=== PATIENT | male | born 1950 | race Caucasian/White ===

== ENCOUNTER 2016-11-03 08:01 | Inpatient (IN) | payer MEDICARE, OTHER ==
--- NOTE | ~2016-11-03 | CN ---
Consultation Report [facility] [address] [place]. [address] NAME: ALMITA PIMENTEL : 52 STATUS : ADM IN PAT#: [id number] AGE: 66 ADM/REG DATE : 11/03/16 MR#: [id number] REPORT SERV DATE: 11/04/16 DICTATED BY: KAMERON HERRERA DATE: 11/04/16 REPORT STATUS : Draft TRANSCRIBED BY: MODNicole DATE: 11/04/16 CONSULTATION REPORT DATE OF CONSULTATION: Dear Lucho Cummings: Thank you for requesting my opinion regarding evaluation and management of Mr. Almita Pimentel's shortness of breath, clinical COPD, and 50+ pack year smoking history. Mr. Pimentel is an extremely pleasant 66-year-old gentleman with a significant past medical history of hypertension, hyperlipidemia, COPD, nicotine dependence, left femoral artery stenosis with previous stenting by Dr. Jiang, obesity, peripheral neuropathy, and depression, who presented to [facility] with a history of shortness of breath. He underwent CT screening of the chest which revealed extensive coronary artery calcification and COPD, with hyperinflation of the lungs, and peripheral interstitial thickening and scarring. There were no lung masses, infiltrates, or adenopathy per the radiologist's report, and then he was referred to cardiology evaluation. He underwent nuclear stress test, that demonstrated ischemic changes on EKG during exertion. Carotid ultrasound by Dr. Jiang in August did not demonstrate any significant flow-limiting disease, consistent with category 1 bilaterally by NASCET criteria. On 11/03/2016, he underwent a coronary arteriogram that demonstrated significant three-vessel disease including 70% left main, tandem left anterior descending 70% and 75% stenosis, 50% circumflex, and distal total chronic occlusion on the right coronary artery, with [id number] collateralization. Left ventricular ejection fraction was normal with an ejection fraction on echo of 65%, and a ventriculogram of 55%. The patient was recommended to undergo coronary artery bypass graft surgery. Lucho Cummings asked us to help optimize his pulmonary status, given his profound smoking history. Currently, the patient states that he has chronic shortness of breath at baseline specifically with exertion. He can easily walk up a flight of stairs or walk on flat ground. However, he does have exertional dyspnea. He characterizes as moderate in nature, well localized to the chest, nonradiating with no significant alleviating or exacerbating factors. He has never been told he has COPD despite his heavy tobacco abuse; nor Mr. Pimentel has been ever been prescribed any bronchodilator therapy. REVIEW OF SYSTEMS: A detailed 14-point review of systems was completed. Pertinent positives and negatives are listed above. PAST MEDICAL HISTORY: 1. Hypertension. 2. Hyperlipidemia. 3. COPD. 4. Nicotine dependence. 5. Superficial left femoral artery stenosis with previous stenting by Dr. Jiang in 2013. 6. Obesity. Consultation Report [address] [place]. [address] NAME: ALMITA PIMENTEL : 52 STATUS : ADM IN PAT#: [id number] AGE: 66 ADM/REG DATE : 11/03/16 MR#: [id number] REPORT SERV DATE: 11/04/16 DICTATED BY: KAMERON HERRERA DATE: 11/04/16 REPORT STATUS : Draft TRANSCRIBED BY: PATRICIA DATE: 11/04/16 7. Peripheral neuropathy. 8. Depression. PAST SURGICAL HISTORY: None. FAMILY HISTORY: Hypertension, cancer, and one brother from an accident at age 24. ALLERGIES: NO KNOWN DRUG ALLERGIES. HOME MEDICATIONS: Reviewed and located in the paper chart. SOCIAL HISTORY: The patient is . 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 He lives close to [place]. He smokes a pack to a pack and half per day for more than 50+ pack years. He denies any significant alcohol or illicit drug abuse. PHYSICAL EXAMINATION: VITAL SIGNS: Afebrile, T-current of 98, pulse of 53, respiratory rate of 16, room air 94%, and blood pressure 158/69. GENERAL: In no acute distress. Able to communicate in full paragraphs at a time. HEENT: Normocephalic and atraumatic. Pupils are equal, round, and reactive to light and accommodation. Posterior oropharynx is clear. NECK: No JVD. No LAD. Trachea midline. CARDIOVASCULAR: Regular rate and rhythm. S1 and S2 present. No obvious murmurs, rubs, or clicks. LUNGS: Clear to auscultation bilaterally. ABDOMEN: Nontender, nondistended, and soft. Positive bowel sounds. EXTREMITIES: No clubbing, cyanosis, or edema. SKIN: No new rashes, lesions, or ulcers. PSYCHIATRIC: Alert and oriented x3. Appropriate mood and affect. Appropriate insight and judgment. NEUROLOGIC: 5/5 strength in upper and lower extremities. Cranial nerves II through XII intact. Gait not tested. DTRs not performed. DIAGNOSTIC STUDIES: CT scan of the chest on 09/18/2016, was personally reviewed by me and I agree with the following interpretation, COPD with hyperinflation and peripheral interstitial thickening with scarring. ASSESSMENT/PLAN: Mr. Almita Pimentel is an extremely pleasant 66-year-old gentleman, with significant past medical history of hypertension, hyperlipidemia, chronic obstructive pulmonary disease, with greater than 50+ pack year smoking history, who presents to [facility] with shortness of breath. His cardiac workup demonstrated significant three-vessel disease requiring CABG. The Pulmonary Service has been asked to optimize his respiratory issues in anticipation of surgery. The patient appears to have no active disease. His CT scan of the chest performed on Consultation Report [address] [address] NAME: ALMITA PIMENTEL : 52 STATUS : ADM IN [facility]#: [id number] AGE: 66 ADM/REG DATE : 11/03/16 MR#: [id number] REPORT SERV DATE: 11/04/16 DICTATED BY: KAMERON HERRERA DATE: 11/04/16 REPORT STATUS : Draft TRANSCRIBED BY: PATRICIA DATE: 11/04/16 09/18/2016, confirmed the presence of chronic obstructive pulmonary disease like changes, including hyperinflation, emphysema, and paraseptal changes, with peripheral associated scarring. I do not see any clear evidence of an interstitial lung disease, though there may be an early indication of these types of changes. At this point, I recommend the following to optimize his pulmonary status. 1. Smoking cessation counseling provided for greater than 10 minutes. 2. Spiriva one puff daily. 3. Albuterol MDI two to four puffs q.4h p.r.n. 4. Bedside incentive spirometry q.1 hour. 5. Nicotine patch daily. 6. The patient may benefit from outpatient Pulmonary followup. I will defer until discharge. Thank you for allowing me to participate in Mr. Pimentel's care. SABINO/PATRICIA Kameron Herrera M.D. / [id number] CC: Nakita Carroll Jr., M.D.
--- NOTE | ~2016-11-03 | DS ---
Discharge Summary [facility] [address] [place]. [address] NAME: ALMITA PIMENTEL : 52 STATUS : DIS IN PAT#: [id number] AGE: 66 ADM/REG DATE : 11/03/16 MR#: [id number] REPORT SERV DATE: 11/21/16 DICTATED BY: ANTONETTE AMARAL JR. DATE: 11/21/16 REPORT STATUS : Draft TRANSCRIBED BY: PATRICIA DATE: 11/21/16 Data Collection from hospitalization DISCHARGE DIAGNOSES: 1. Coronary artery disease, status post coronary artery bypass grafting. 2. Paroxysmal atrial fibrillation. 3. Nicotine dependence. 4. Hypertension. 5. Mixed hyperlipidemia. 6. Chronic obstructive pulmonary disease. 7. Obesity. 8. Peripheral neuropathy. 9. Depression. CONSULTATIONS: 1. Alireza Cummings N.P. 2. Kameron Marion M.D. 3. Sanju Angelo APN. PROCEDURES: 1. Cardiac catheterization, 11/03/2016. 2. Median sternotomy, extracorporeal circulation. 3. Urgent coronary artery bypass grafting x4 with PHILLIPS to the LAD, reverse greater saphenous vein graft to the diagonal artery, reverse greater saphenous vein graft to the ramus intermedius, reverse greater saphenous vein graft to the right posterolateral branch, transesophageal echocardiogram, endoscopic vein harvest from the right leg, external sternal fixation with sternal plating with SternaLock [employer] system, Provena placement, 11/06/2016. 4. Vein mapping of the bilateral lower extremities, 11/04/2016. 5. Pulmonary function studies, 11/06/2016. 6. Overnight oximetry study, 11/10/2016. DISCHARGE MEDICATIONS: Cordarone 200 mg twice a day, Norvasc 5 mg daily, aspirin 81 mg daily, Lipitor 40 mg daily, Lexapro 20 mg at bedtime, Neurontin 300 mg twice a day, Early Branch 5/325 one to two tablets every four hours as needed, Imdur 60 mg daily, Lopressor 12.5 mg twice a day, Mirapex 0.25 mg at bedtime, Jantoven 5 mg at bedtime, Ambien CR 12.5 mg at bedtime. CONDITION ON DISCHARGE: Stable. DISPOSITION: The patient was discharged home on an 1800-calorie diabetic/cardiac diet with activities as instructed. He would follow up with Dr. Josesito Sung four weeks following discharge and will follow up with me four weeks following discharge. He would follow up with Dr. Flora Houston on 11/14/2016. HOSPITAL COURSE: This is a 66-year-old man who had been evaluated regarding shortness of breath and coronary artery disease. He has regular exertional shortness of breath and it had been persistent over the past couple of years. He has been a lifelong heavy smoker Discharge Summary [address] [address] NAME: ALMITA PIMENTEL : 52 STATUS : DIS IN PAT#: [id number] AGE: 66 ADM/REG DATE : 11/03/16 MR#: [id number] REPORT SERV DATE: 11/21/16 DICTATED BY: ANTONETTE AMARAL JR. DATE: 11/21/16 REPORT STATUS : Draft TRANSCRIBED BY: PATRICIA DATE: 11/21/16 about a pack and half per day. He denies any precordial chest pain. Screening chest CT revealed extensive coronary calcification diagnosing coronary artery disease. He denied any palpitations, dizziness or presyncope. He denied orthopnea or PND. He does have bilateral neuropathic pain. He denied any claudication. His carotids had recently been evaluated by Dr. Jiang. It was felt that he would need to undergo cardiac catheterization. He was admitted to the hospital at this time for further evaluation and treatment. Upon admission, he was taken to the [facility] where he underwent the above-mentioned procedure. He tolerated this well. There were no complications. Following this, he was seen by Alireza Cummings regarding three-vessel coronary artery disease with left main stenosis and consideration for urgent coronary artery bypass grafting. The patient's coronary arteriogram demonstrated significant three-vessel coronary artery disease including a 70% left main stenosis, tandem left anterior descending 70% and coronary artery disease including 70% left main stenosis, tandem left anterior descending 70% and 75% stenosis, 50% circumflex, and distal chronic total occlusion of the right coronary artery with left-to- right collaterals. Left ventricular ejection fraction was normal with the ejection fraction on echo at 65% and at ventriculogram 55%. It was felt that the patient would need to undergo coronary artery bypass grafting. The following day, vein mapping of the bilateral lower extremities was performed. The patient was seen by Dr. Kameron Marion regarding his opinion and management of shortness of breath and clinical COPD as well as a 50+ pack year smoking history. He had a CT scan of the chest which had revealed extensive coronary artery calcification and COPD with hyperinflation of the lungs and peripheral interstitial thickening and swollen. There have been no lung masses, infiltrates or adenopathy. He had undergone a carotid ultrasound in August which did not demonstrate any significant flow- limiting disease. This was consistent with category 1 bilaterally. They had been asked to help optimize the patient's pulmonary status given his profound smoking history. Currently, the patient states that he has chronic shortness of breath at baseline specifically with exertion. He can easily walk up a flight of stairs or walk on flat ground. However, he does have exertional dyspnea. He characterizes it as moderate in nature and well localized to the chest and it is nonradiating with no significant alleviating or exacerbating factors. He said he had never been told that he had COPD despite his heavy tobacco use nor has the patient ever been prescribed any bronchodilator therapy. The Pulmonary Service was asked the optimize his respiratory issues in anticipation of surgery. He appeared to have no active disease at this time. We encouraged him to stop smoking. Spiriva was going to be started daily. Albuterol MDI was going to be given as needed. A bedside incentive spirometry was to be used every hour and nicotine patch would be placed daily. He felt that the patient may benefit from outpatient pulmonary followup. On the 12th, he said he felt fine. He had no chest pain, shortness of breath or palpitations. His lungs were clear to auscultation. Imdur was increased. Amlodipine was also increased. His blood pressure was under suboptimal control. Hydralazine would be given as needed. Plans were being made to proceed with surgical intervention. On 11/06/2016, potassium supplementation had being given. The patient was taken to the operating room by Dr. Josesito Sung where he underwent the above-mentioned procedure. He tolerated this well. There were no complications. He had also undergone pulmonary function studies earlier in the day. Blood pressure was under fair control. On postop day #1, he was feeling okay. He said he had some minor pleuritic chest pain. He Discharge Summary [address] [address] NAME: ALMITA PIMENTEL : 52 STATUS : DIS IN PAT#: [id number] AGE: 66 ADM/REG DATE : 11/03/16 MR#: [id number] REPORT SERV DATE: 11/21/16 DICTATED BY: ANTONETTE AMARAL JR. DATE: 11/21/16 REPORT STATUS : Draft TRANSCRIBED BY: PATRICIA DATE: 11/21/16 had mild dyspnea. Chest x-ray showed increased vascular congestion and pulmonary edema. White count was 17.1. INR level was 1.3. IV Lasix was started for diuresis. Statin therapy was being provided. Diabetes was well controlled on insulin drip. Hemoglobin A1c was 5.6. He was seen by Sanju Angelo regarding postop hyperglycemia. The patient was up sitting in a chair and was eating. He was currently on an IV insulin drip. He has no previous history of diabetes. Hemoglobin A1c was 5.6%. His blood sugars were currently controlled on IV insulin drip although he was requiring a high rate. He was eating well. He was going to be given a dose of Levemir postop and change to postop cardiac IV insulin transitional orders level 2. We would try to wean him off the insulin drip. The next day, he said he was feeling good. He was up sitting in a chair. He had no shortness of breath or chest pain. He remained in a sinus rhythm. He was eating well. Level 1 sliding scale insulin continued. On 11/09/2016, he had no issues overnight. He was mobilizing without complaints. His pain was well controlled. He had some scattered rhonchi and rales in his lungs. Over the next couple of days, discharge planning was performed. The Abel drain was discontinued. He was being diuresed. He had developed atrial fibrillation but converted to a sinus rhythm. He had no chest pain or shortness of breath. On 11/11/2016, his sternum was clean, dry, and intact. Chest x-ray showed no pneumothorax or effusion. Discharge instructions were given. Due to his improved and stable condition, he was discharged home with the above-stated instructions. Information collected by: Umm Carcamo I submit the above information as my discharge summary. SENTHIL/PATRICIA Antonette Amaral Jr., M.D. / [id number] CC: Nakita Carroll Jr., M.D. Michael S. Loga, N.P.
--- NOTE | ~2016-11-03 | CN ---
Consultation Report [place] [address] [facility] [place]. [address] NAME: ALMITA PIMENTEL : 52 STATUS : ADM IN PAT#: [id number] AGE: 66 ADM/REG DATE : 11/03/16 MR#: [id number] REPORT SERV DATE: 11/07/16 DICTATED BY: SANJU YUEN DATE: 11/07/16 REPORT STATUS : Draft TRANSCRIBED BY: MODL DATE: 11/07/16 NEW CONSULT DATE OF CONSULTATION: REASON FOR CONSULT: Postop hyperglycemia. HISTORY OF PRESENT ILLNESS: This 66-year-old male, status post CABG x3 postop day #1, performed by Dr. Sung. The patient tolerated the procedure well. Currently, he is in room, sitting up in chair, and eating. We have been consulted for postop hyperglycemia. The patient is currently on IV insulin drip, currently running at 12 units an hour. The patient has no history of diabetes as the hemoglobin A1c has been checked here at 5.6%. Currently, blood sugars are controlled on IV insulin drip, though he is requiring high rate. He is postop day 1, he is eating well. PAST MEDICAL HISTORY: 1. Hypertension. 2. Hyperlipidemia. 3. COPD. 4. Nicotine dependence. 5. Superficial left femoral artery stenosis. 6. Obesity. 7. Peripheral neuropathy. 8. Depression. PAST SURGICAL HISTORY: None. SOCIAL HISTORY: , retired insurance customer service specialist. He smokes 1-1/2 packs per day. FAMILY HISTORY: Hypertension and cancer. HOME MEDICATIONS: 1. Aspirin. 2. Lipitor. 3. Bisoprolol and HCTZ. 4. Lexapro. 5. Neurontin. 6. Imdur. 7. Mirapex. 8. Ambien. 9. Amlodipine. ALLERGIES: NO KNOWN ALLERGIES. Consultation Report [place] [address] [place]. [address] NAME: ALMITA PIMENTEL : 52 STATUS : ADM IN PAT#: [id number] AGE: 66 ADM/REG DATE : 11/03/16 MR#: [id number] REPORT SERV DATE: 11/07/16 DICTATED BY: SANJU YUEN DATE: 11/07/16 REPORT STATUS : Draft TRANSCRIBED BY: MODL DATE: 11/07/16 REVIEW OF SYSTEMS: 14-point review of systems performed with the patient and negative as previously mentioned. PHYSICAL EXAMINATION: VITAL SIGNS: Blood pressure 125/68, heart rate 86, respirations 16, O2 saturation 94% on 4 L nasal cannula, temperature 100.1. GENERAL: Cooperative, no apparent distress, awake. NEURO: Alert and oriented x3. Pupils PERRLA. No focal deficits. CHEST: Midline sternotomy with the chest tubes drain. LUNGS: Clear to auscultation bilaterally. Normal respiratory effort. CARDIOVASCULAR: No murmurs auscultated. Regular rhythm. ABDOMEN: Soft, nontender. Hypoactive sluggish bowel sounds. EXTREMITIES: No edema. Normal distal pulses. LABORATORY DATA: Sodium 142, potassium 5.0, chloride 109, BUN 19, creatinine 0.90, calcium 8.9, magnesium 2.1. White blood cells 17.1, hemoglobin 13.1, hematocrit 39.0, platelets 119. INR 1.3. ASSESSMENT AND PLAN: 1. Coronary artery disease, status post coronary artery bypass graft x3, postop day #1, on amlodipine, aspirin, amiodarone, HCTZ, Imdur, beta manny, and nitro paste q.6 hours. Further plans per Cardiology and Cardiovascular Thoracic Surgery. 2. Hypertension. Blood pressure is controlled. 3. Chronic obstructive pulmonary disease, stable. 4. Obesity with body mass index of 30.7. 5. Postop hyperglycemia, nondiabetic with A1c of 5.6, on IV insulin drip averaging about 8 units an hour over the last 12 hours. We will give Levemir 30 units x1 postop and change the patient to postop cardiac IV insulin transitional orders level 2 and try to wean him off the insulin drip. Thank you very much for this consult. TDR/MODL Sanju Yuen APN / [id number] CC: Nakita Carroll Jr., M.D. Wilson M. Clements, MD
--- NOTE | ~2016-11-03 | PUL ---
[facility] [address] [place]. [address] NAME: ALMITA PIMENTEL : 52 STATUS : DIS IN PAT#: [id number] AGE: 66 ADM/REG DATE : 11/03/16 MR#: [id number] REPORT SERV DATE: 11/11/16 DICTATED BY: MACHELLE STERN IV DATE: 11/11/16 REPORT STATUS : Draft TRANSCRIBED BY: MODNicole DATE: 11/11/16 PULMONARY FUNCTION TEST OVERNIGHT OXIMETRY DATE OF STUDY: 11/10/2016. The study was performed on room air. DURATION: Six hours and 18 minutes of data are available for review. RESULTS: The mean oxygen saturation was 89.3%. The lowest recorded saturation was 81%. The patient spent one hour and 38 minutes with oxygen saturations less than 88%. There were periods of oxygen saturation variation of sawtooth pattern, though rarely did this meet 4% variance. IMPRESSION: Severe nocturnal hypoxemia on room air. I would suggest placing the patient on 2 L of supplemental oxygen. There is no clear pattern consistent with obstructive sleep apnea based on this study. CAREN/PATRICIA Machelle Stern IV, M.D. / [id number] CC: Nakita Carroll Jr., M.D.
--- NOTE | ~2016-11-03 | CN ---
Consultation Report [facility] [address] [place]. [address] NAME: ALMITA PIMENTEL : 52 STATUS : ADM IN PAT#: [id number] AGE: 66 ADM/REG DATE : 11/03/16 MR#: [id number] REPORT SERV DATE: 11/03/16 DICTATED BY: ALIREZA ESPINOZA DATE: 11/03/16 REPORT STATUS : Draft TRANSCRIBED BY: MODL DATE: 11/03/16 CONSULTATION. DATE OF CONSULTATION: 11/03/2016 REASON FOR CONSULTATION: Three-vessel coronary artery disease with left main stenosis, consideration for urgent coronary artery bypass grafting. CHIEF COMPLAINT: Shortness of breath. HISTORY OF PRESENT ILLNESS: This 66-year-old gentleman, smoker, with no history of heart disease, went to his primary care physician with complaints of shortness of breath. He reports smoking greater than 50-pack years. He has smoked over [id number]-half per day since his teenage years. He underwent screening CT of the chest, and this revealed extensive coronary artery calcification and COPD with hyperaeration of the lungs and peripheral interstitial thickening and scarring. There were no lung masses, infiltrates, or adenopathy per radiologist's interpretation. He was referred for cardiology evaluation, and he underwent nuclear stress test that showed ischemic changes on EKG during exertion. He had carotid ultrasound by Dr. Jiang in August that did not demonstrate any significant flow-limiting disease that is category 1 disease bilaterally by NASCET criteria. Today, the patient underwent coronary arteriogram that demonstrated significant three-vessel coronary artery disease including a 70% left main stenosis, tandem left anterior descending 70% and 75% stenosis, 50% circumflex, and distal chronic total occlusion of the right coronary artery with left to right collateralization. Left ventricular ejection fraction was normal with the ejection fraction on echo at 65%, ventriculogram of 55%. We were asked to see for possible urgent coronary artery bypass grafting, and this was discussed with the patient and his family at bedside today. PRIOR MEDICAL HISTORY: 1. Hypertension. 2. Hyperlipidemia. 3. COPD. 4. Nicotine dependence. 5. Superficial left femoral artery stenosis with previous stenting by Dr. Jiang, 2013. 6. Obesity. 7. Peripheral neuropathy. 8. Depression. PRIOR SURGICAL HISTORY: None. FAMILY HISTORY: Brother with hypertension, father and mother with cancer. One brother from an accident at age 24. Consultation Report [facility] [address] [place]. [address] NAME: ALMITA PIMENTEL : 52 STATUS : ADM IN PAT#: [id number] AGE: 66 ADM/REG DATE : 11/03/16 MR#: [id number] REPORT SERV DATE: 11/03/16 DICTATED BY: ALIREZA ESPINOZA DATE: 11/03/16 REPORT STATUS : Draft TRANSCRIBED BY: PATRICIA DATE: 11/03/16 ALLERGIES: NONE KNOWN. MEDICATIONS: Include aspirin 81 mg daily, atorvastatin 40 mg daily, Ziac 10/6.25 decreased to 5/6.25 p.o. daily, Lexapro 20 mg p.o. daily, gabapentin 300 mg p.o. b.i.d., isosorbide 30 mg p.o. daily, Mirapex 0.25 mg p.o. at bedtime, Ambien 12.5 mg p.o. at bedtime. He also started on amlodipine 5 mg p.o. daily. 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 His tobacco use consists of cigarette smoking, a pack and half per day for likely more than 50-pack years. He denies use of alcohol or illicit drugs. REVIEW OF SYSTEMS: GENERAL: Negative for any recent weight change, fevers, chills, or night sweats. ENT: Positive for wearing glasses. Negative for cataracts or glaucoma. Negative for hearing loss. Positive for dental implants and fillings. RESPIRATORY: Significant for snoring. Negative for hemoptysis. Positive for wheezing. CV: Negative for chest pain, tightness, heaviness, pressure, discomfort in the neck, back, shoulders, arms, or jaw. Negative for heartburn. GI: Positive for taking daily Prilosec. Negative for bleeding in stool or vomiting blood. Negative for ulcers. : Negative. ENDOCRINE: Negative. NEUROLOGIC: Negative for symptoms of TIA or amaurosis fugax. Negative for seizures, tremors, or memory loss. PSYCH: Negative for hallucinations. Positive for depression. MUSCULOSKELETAL: Negative for any bone, joint, back, or neck problems. HEME/ONC: Negative for skin cancers. Negative for anemia. Negative for easy bruising, free bleeding, or blood clots. Otherwise, negative or as above. PHYSICAL EXAMINATION: GENERAL: This is a pleasant, obese white male, in no acute distress. His weight is 99.81 kg, height is 180.34 cm. VITAL SIGNS: Blood pressure 145/70, temperature 98.1, pulse 49 and regular, respirations 17 and regular and unlabored. HEENT: Normocephalic, atraumatic. Pupils equal, round, reactive to light and accommodation. Sclerae are injected,. He has no icterus. Conjunctivae are pink. No xanthelasma. Oral and buccal mucosa pink and moist. Teeth in good condition with multiple fillings noted. Mallampati class 2 airway. NECK: Supple. No restricted range of motion. No carotid bruits. No jugular venous distention. CHEST: He has scattered polyphonic expiratory wheezes and inspiratory rhonchi. No use of accessory muscles. No chest wall tenderness. No deformity. CV: Regular rate and rhythm without murmur or rub. He has palpable and symmetric central and peripheral pulses, mild clubbing of the fingers. No cyanosis. No lower extremity varicosities, rubor, or signs of arterial insufficiency. Consultation Report [address] [place]. [address] NAME: ALMITA PIMENTEL : 52 STATUS : ADM IN [facility]#: [id number] AGE: 66 ADM/REG DATE : 11/03/16 MR#: [id number] REPORT SERV DATE: 11/03/16 DICTATED BY: ALIREZA ESPINOZA DATE: 11/03/16 REPORT STATUS : Draft TRANSCRIBED BY: MODL DATE: 11/03/16 ABDOMEN: Soft, obese, nontender with normoactive bowel sounds. No hepatosplenomegaly. /RECTAL: Declined. MUSCULOSKELETAL: No kyphoscoliosis, no asymmetry. NEUROLOGIC: Alert oriented to day, date, place, and situation. Speech is clear and fluent. No focal deficits. No tremors. SKIN, HAIR, AND NAILS: Good hygiene, no sores masses or rashes. DATA: His coronary arteriogram which I reviewed today showing the lesions as described. Echocardiogram reviewed with no evidence of valvulopathy. Current EKG shows sinus bradycardia. Carotid ultrasound from Dr. Jiang's office shows irregular heterogeneous plaque in the ICA with no elevated velocities and antegrade vertebral flow. There is plaquing in velocities consistent with 1% to 49% stenosis or category 1 disease in bilateral internal carotid arteries. CURRENT LABORATORY DATA: Sodium is 141, potassium 4.7, chloride 104, CO2 of 29, BUN 14, creatinine 0.96. Lipids are within normal limits. His CBC shows hemoglobin of 15.4 g, hematocrit is 45%, platelets 209,000. IMPRESSION: 1. Three-vessel flow-limiting coronary artery disease with left main involvement. 2. Chronic obstructive pulmonary disease, emphysema. 3. Tobacco abuse. 4. Atherosclerotic coronary artery disease. 5. Hypertension. 6. Dyslipidemia. 7. Obesity. 8. Depression. PLAN: Discussed with the patient and his at bedside today. We talked about possible coronary artery bypass grafting, indications, benefits, and serious risks which include but are not limited to, things such as bleeding, need for blood or blood product transfusion and their attendant risks, infection including deep sternal infection, mediastinitis, damage to the kidneys, liver, or lungs, heart attack, stroke, abnormal heart rhythm, and even . The patient indicates his understanding and is willing to proceed. Using Society of Thoracic Surgeons database, risk calculations predicted mortality of 0.8% and any morbidity or mortality 10.067%, and this was shared with the patient and his today. We appreciate very much the opportunity to participate in his care and have tentatively looking toward Sunday for urgent coronary artery bypass grafting by Dr. Sung. VESTA/PATRICIA Alireza Magana Consultation Report [address] [address] NAME: ALMITA PIMENTEL : 52 STATUS : ADM IN PAT#: [id number] AGE: 66 ADM/REG DATE : 11/03/16 MR#: [id number] REPORT SERV DATE: 11/03/16 DICTATED BY: ALIREZA ESPINOZA DATE: 11/03/16 REPORT STATUS : Draft TRANSCRIBED BY: PATRICIA DATE: 11/03/16 Alicia Espinoza / [id number] CC: Nakita Carroll Jr., M.D.
--- NOTE | ~2016-11-03 | PUL ---
[id number] [place]. [address] NAME: ALMITA PIMENTEL : 52 STATUS : ADM IN [facility]#: [id number] AGE: 66 ADM/REG DATE : 11/03/16 MR#: [id number] REPORT SERV DATE: 11/07/16 DICTATED BY: MACHELLE STERN IV DATE: 11/06/16 REPORT STATUS : Draft TRANSCRIBED BY: MODL DATE: 11/06/16 PULMONARY FUNCTION TEST SPIROMETRY CLINICAL EDUCATION COORDINATOR COMMENTS: The patient's efforts were good. The study was performed with the patient sitting in the chair. FINDINGS: Baseline spirometry demonstrates a low normal FVC with a low FEV1 and FEV1/FVC ratio. IMPRESSION: Moderate obstructive ventilatory defect. FEV1 is 2.31 L or 65% of predicted. NM/PATRICIA Machelle Stern IV, M.D. / [id number] CC: Damon Amaral Jr., M.D.
--- NOTE | ~2016-11-03 | OP ---
Record Of Operation [facility] [address] [facility] [address] [place]. [address] NAME: ALMITA PIMENTEL : 52 STATUS : ADM IN PAT#: [id number] AGE: 66 ADM/REG DATE : 11/03/16 MR#: [id number] REPORT SERV DATE: 11/06/16 DICTATED BY: JOSESITO HENDERSON DATE: 11/06/16 REPORT STATUS : Draft TRANSCRIBED BY: MODL DATE: 11/06/16 DATE OF PROCEDURE: 11/06/2016 THREADER: Nando Figueroa. ANESTHESIOLOGIST: Dr. James Perdomo. PREOPERATIVE DIAGNOSES: 1. Three-vessel coronary artery disease. 2. Unstable angina. 3. Hypertension. 4. Hyperlipidemia. 5. SFA stent. 6. Peripheral vascular disease. 7. Chronic obstructive pulmonary disease. 8. Dyspnea on exertion. 9. Tobacco abuse. POSTOPERATIVE DIAGNOSES: 1. Three-vessel coronary artery disease. 2. Unstable angina. 3. Hypertension. 4. Hyperlipidemia. 5. SFA stent. 6. Peripheral vascular disease. 7. Chronic obstructive pulmonary disease. 8. Dyspnea on exertion. 9. Tobacco abuse. OPERATION/PROCEDURE PERFORMED: 1. Median sternotomy. 2. Extracorporeal circulation. 3. Urgent coronary artery bypass grafting x4, left internal mammary artery to left anterior descending, reversed greater saphenous vein graft to D3, reversed greater saphenous vein graft to ramus intermedius, reversed greater saphenous vein graft to right posterolateral branch. 4. DENISA. 5. Endoscopic vein harvest of right leg. 6. External sternal fixation with sternal plating with SternaLock [employer] system. 7. Prevena placement. COMPLICATIONS: None. TUBES AND DRAINS: 24-Monegasque Abel to the left pleural space. A 32-straight mediastinal tube. Atrial and ventricular wires. Record Of Operation [facility] [address] [facility] [place]. [address] NAME: ALMITA PIMENTEL : 52 STATUS : ADM IN PAT#: [id number] AGE: 66 ADM/REG DATE : 11/03/16 MR#: [id number] REPORT SERV DATE: 11/06/16 DICTATED BY: JOSESITO HENDERSON DATE: 11/06/16 REPORT STATUS : Draft TRANSCRIBED BY: MODL DATE: 11/06/16 POSTOPERATIVE CONDITION: Stable to CVICU. INTRAOPERATIVE FINDINGS: Excellent vein. LAD was extremely diffusely diseased and small distally. VERONICA was approximately 3 mm in size. He had a very large heart with a thick LV on transesophageal echo. There was left ventricular hypertrophy. There was normal EF. No MR. No AI. No . DETAILS OF STERNAL PLATING: One 180 plate was used. Two X plates were used. Twenty 16-mm screws were used. The 180 plate was placed on the manubrium between the second and third sternal wires, and X plates were placed between sternal wires on the body of the sternum. DETAILS OF CARDIOPULMONARY BYPASS GRAFTIN. Graft #1, PHILLIPS to left anterior descending. This was 1.25 mm distally. There was excellent Doppler signals, both pre and post protamine. This was a small diffusely diseased artery. 2. Reversed greater saphenous vein graft to D3, this was 1.75 mm artery. 3. Reversed greater saphenous vein graft to ramus intermedius. This was a 2-mm artery. 4. Reversed greater saphenous vein graft to the right posterolateral branch, this was 1.5 mm diffusely diseased artery. INDICATIONS FOR PROCEDURE: Mr. Pimentel is a 66-year-old gentleman with a strong history of smoking with symptoms consistent with unstable angina, who was admitted after outpatient catheterization for urgent coronary artery bypass grafting. The patient was seen. Risks, benefits, and alternatives were discussed with him, including but not limited to, bleeding, infection, stroke, , heart attack, need for future operations. All questions were answered. STS risk score was calculated and discussed with the patient. Risk of less than 5% and total morbidity and mortality less than 20% were discussed with the patient. All questions were answered. He was brought to the operating room. DETAILS OF PROCEDURE: The patient was brought to the operating room and placed supine on the operating room table. After satisfactory induction of general endotracheal anesthesia, he was prepped and draped in usual sterile fashion. Working simultaneously, median sternotomy was performed while endoscopic vein harvest was performed from the right leg. Skin and subcutaneous tissues were divided. Clavipectoral fascia was divided. The sternum was divided in the midline. Sternal retractor was placed. Thymic tissue was divided in the midline up to the innominate vein. The pericardium was opened in the midline along with diaphragms. Targets were inspected. Targets were felt to be appropriate for bypass. Please note, the distal circumflex vessel was extremely small, did not feel this was appropriate for bypass where I could see it on the epicardial surface of the heart. The Rultract retractor was then placed. The internal mammary artery was harvested on the left from its takeoff under the subclavian vein at the bifurcation of the diaphragm. Systemic heparinization was achieved. After three minutes, the pedicle was clipped and divided at the bifurcation of the diaphragm. The hemostasis was obtained along the chest wall. The Rultract retractor was removed. A 24-Monegasque Abel was placed and exteriorized. The pedicle was infiltrated with papaverine, placed in the upper chest. The sternal retractor was placed. Pericardial well was created. Ascending aortic cannulation was achieved through dual pursestring at the base of the innominate artery. Antegrade root vent cardioplegia Record Of Operation [facility] [address] [facility] [place]. [address] NAME: ALMITA PIMENTEL : 52 STATUS : ADM IN [facility]#: [id number] AGE: 66 ADM/REG DATE : 11/03/16 MR#: [id number] REPORT SERV DATE: 11/06/16 DICTATED BY: JOSESITO HENDERSON DATE: 11/06/16 REPORT STATUS : Draft TRANSCRIBED BY: PATRICIA DATE: 11/06/16 tack was placed and a dual stage venous cannula was placed through pursestring in the right atrial appendage. The vein was brought out and prepared for bypass. The mammary was brought down through a wide V in the pericardium. Cardiopulmonary bypass was initiated after documentation of an adequate ACT. The cross-clamp was brought up and the heart was arrested with cold antegrade cardioplegia, switching cold antegrade cardioplegia every 15-20 minutes throughout the remainder of the cross-clamp. The grafts were then performed as mentioned in the findings. All distal anastomoses were performed with 8-0 Surgipro. The internal mammary artery was brought through a wide V in the pericardium. It was anastomosed. After it was anastomosed, the bulldog was released and there was flow in the artery that flowed proximally and distally in the LAD. It was attached to the epicardial surface on two places using 6-0 Prolene. The proximal grafts were performed after making proximal aortotomies and enlarging with 5.2 mm punch. These were done using 6-0 Prolene. Vein markers were placed. The grafts were de-aired. Cross-clamp was removed. Atrial and ventricular pacing wires were placed. The patient was able to be weaned from cardiopulmonary bypass without incident. Protamine was administered. The patient was decannulated. All cannulation sites were oversewn with 4-0 Prolene. A 32-Monegasque chest tube was introduced underneath the sternum. The pericardium was loosely reapproximated over the heart with 2-0 silk. The sternum was then closed using stainless steel sternal wires. Pectoral flaps were raised to the edge of the sternum and the SternaLock Deshawn plating system was used. The 180 plate was used in the manubrium and two X plates were used on the body of the sternum. The 16 mm screws were used for total of 20 screws. The clavipectoral fascia was reapproximated using running #1 StrataFix. Subcutaneous tissue was closed using running #1 StrataFix and the skin closed using 2-0 Quill. The Prevena dressing was placed. The patient was transferred to CVICU in critical and stable condition. WMC/MODL Josesito Henderson MD / [id number] CC: Josesito Henderson MD
[~2016-11-03 08:01] MED LIST: AMBIEN CR12.5 MG PO; ASAB PO; IMDUR30 PO; LEXAPRO20 PO; LIPITOR40 PO; MIRAPEX250 PO; NEUR300 PO; ZIAC10 PO
[2016-11-03 09:02] LABS: BASOPHILS 0.3 %; BASOPHILS ABSOLUTE 0.03 10/3/uL (0.0-0.16); EOSINOPHILS 1.2 %; EOSINOPHILS ABSOLUTE 0.11 10/3/uL (0.0-0.53); HEMOGLOBIN 15.4 g/dL (13.6-17.8); IMMATURE GRANULOCYTES 0.2 %; IMMATURE GRANULOCYTES ABSOLUTE 0.02 10/3/uL (0.0-0.11); LYMPHOCYTES ABSOLUTE 2.84 10/3/uL (0.67-4.30); MEAN CORPUS HGB CONC 34.2 g/dL (32.0-36.0); MEAN CORPUSCULAR HEMOGLOB 30.7 pg (26.0-34.0); MEAN CORPUSCULAR VOLUME 89.6 fL (80-100); MEAN PLATELET VOLUME 9.8 fL (9.2-13.0); MONOCYTES 7.8 %; MONOCYTES ABSOLUTE 0.71 10/3/uL (0.21-1.20); NEUTROPHILS 59.5 %; NEUTROPHILS ABSOLUTE 5.44 10/3/uL (2.02-8.40); PLATELET COUNT 209 10/3/uL (150-400); RBC DISTRIBUTION WIDTH 12.6 % (12.0-16.0); RED CELL COUNT 5.02 10/6/uL (4.7-6.1); WHITE BLOOD CELLS 9.2 10/3/uL (4.5-10.5)
[2016-11-03 09:06] LABS: MANUAL DIFF NO %
[2016-11-03 09:15] LABS: BUN (BLOOD UREA NITROGEN) 14 MG/DL (6-23); CHLORIDE, SERUM 104 MMOL/L (96-112); CHOL/HDL RATIO(NOT ORDER) 2.6 (0-5); CHOLESTEROL 99 MG/DL (< 200); CO2 (CARBON DIOXIDE) 29 MMOL/L (24-34); CREATININE 0.96 MG/DL (0.70-1.30); GFR AFRICAN AMERICAN 96 ML/MIN (>=60); GFR NON AFRICAN AMERICAN 83 ML/MIN (>=60); GLUCOSE, SERUM 109 MG/DL (60-99); HDL CHOLESTEROL 38 MG/DL (> 39); LDL CHOLESTEROL 42 MG/DL (< 130); NON-HDL CHOLESTEROL 61 MG/DL (< 160); POTASSIUM, SERUM 4.7 MMOL/L (3.5-5.3); SODIUM, SERUM 141 MMOL/L (135-148); TRIGLYCERIDE 99 MG/DL (< 150)
[2016-11-03 13:56] LABS: INTERNATIONAL NORMAL RATI 1.2 UNITS (-); PROTIME (NOT ORD) 15.1 SEC (12.0-14.5)
[2016-11-03 13:57] LABS: PARTIAL THROMBO TIME 44.9 SEC (22.5-37.2)
[2016-11-04 05:09] LABS: BASOPHILS 0.4 %; BASOPHILS ABSOLUTE 0.04 10/3/uL (0.0-0.16); EOSINOPHILS 0.8 %; EOSINOPHILS ABSOLUTE 0.08 10/3/uL (0.0-0.53); HEMATOCRIT 43.6 % (40.0-51.0); HEMOGLOBIN 15.2 g/dL (13.6-17.8); IMMATURE GRANULOCYTES 0.2 %; IMMATURE GRANULOCYTES ABSOLUTE 0.02 10/3/uL (0.0-0.11); LYMPHOCYTES 28.9 %; LYMPHOCYTES ABSOLUTE 2.88 10/3/uL (0.67-4.30); MEAN CORPUS HGB CONC 34.9 g/dL (32.0-36.0); MEAN CORPUSCULAR HEMOGLOB 31.1 pg (26.0-34.0); MEAN CORPUSCULAR VOLUME 89.2 fL (80-100); MONOCYTES 7.5 %; MONOCYTES ABSOLUTE 0.75 10/3/uL (0.21-1.20); NEUTROPHILS 62.2 %; NEUTROPHILS ABSOLUTE 6.19 10/3/uL (2.02-8.40); PLATELET COUNT 201 10/3/uL (150-400); RBC DISTRIBUTION WIDTH 12.5 % (12.0-16.0); RED CELL COUNT 4.89 10/6/uL (4.7-6.1)
[2016-11-04 05:11] LABS: MANUAL DIFF NO %
[2016-11-04 05:17] LABS: BUN (BLOOD UREA NITROGEN) 14 MG/DL (6-23); CALCIUM, SERUM 8.8 MG/DL (8.5-10.4); CHLORIDE, SERUM 106 MMOL/L (96-112); CO2 (CARBON DIOXIDE) 25 MMOL/L (24-34); CREATININE 0.77 MG/DL (0.70-1.30); GFR AFRICAN AMERICAN 110 ML/MIN (>=60); GFR NON AFRICAN AMERICAN 95 ML/MIN (>=60); GLUCOSE, SERUM 94 MG/DL (60-99); POTASSIUM, SERUM 3.8 MMOL/L (3.5-5.3); SODIUM, SERUM 140 MMOL/L (135-148)
[2016-11-04 12:13] LABS: ASCORBIC ACID (UR NOT ORDER) 40 (NEG); BILIRUBIN, URINE NEGATIVE (NEG); KETONE, URINE NEGATIVE (NEG); LEUKOCYTE ESTERASE(NOT OR NEG (NEG); WBC (NOT ORDERED) (RFLEX) < 1 (0-5)
[2016-11-06 04:56] LABS: BASOPHILS 0.4 %; BASOPHILS ABSOLUTE 0.04 10/3/uL (0.0-0.16); EOSINOPHILS 1.5 %; EOSINOPHILS ABSOLUTE 0.15 10/3/uL (0.0-0.53); HEMATOCRIT 41.4 % (40.0-51.0); HEMOGLOBIN 14.4 g/dL (13.6-17.8); IMMATURE GRANULOCYTES 0.2 %; IMMATURE GRANULOCYTES ABSOLUTE 0.02 10/3/uL (0.0-0.11); LYMPHOCYTES 34.5 %; LYMPHOCYTES ABSOLUTE 3.52 10/3/uL (0.67-4.30); MEAN CORPUS HGB CONC 34.8 g/dL (32.0-36.0); MEAN CORPUSCULAR HEMOGLOB 30.3 pg (26.0-34.0); MEAN CORPUSCULAR VOLUME 87.2 fL (80-100); MEAN PLATELET VOLUME 9.5 fL (9.2-13.0); MONOCYTES 8.7 %; MONOCYTES ABSOLUTE 0.89 10/3/uL (0.21-1.20); NEUTROPHILS 54.7 %; NEUTROPHILS ABSOLUTE 5.59 10/3/uL (2.02-8.40); PLATELET COUNT 196 10/3/uL (150-400); RBC DISTRIBUTION WIDTH 12.8 % (12.0-16.0); RED CELL COUNT 4.75 10/6/uL (4.7-6.1); WHITE BLOOD CELLS 10.2 10/3/uL (4.5-10.5)
[2016-11-06 05:00] LABS: MANUAL DIFF NO %
[2016-11-06 05:06] LABS: INTERNATIONAL NORMAL RATI 1.1 UNITS (-); PROTIME (NOT ORD) 14.5 SEC (12.0-14.5)
[2016-11-06 05:14] LABS: % IRON SAT 25 % (20-50); A/G RATIO 0.9 (0.7-1.9); ALBUMIN 3.5 G/DL (3.5-5.0); ALKALINE PHOSPHATASE 84 U/L (45-117); BUN (BLOOD UREA NITROGEN) 14 MG/DL (6-23); CALCIUM, SERUM 8.7 MG/DL (8.5-10.4); CHLORIDE, SERUM 103 MMOL/L (96-112); CO2 (CARBON DIOXIDE) 26 MMOL/L (24-34); CREATININE 0.81 MG/DL (0.70-1.30); GFR AFRICAN AMERICAN 108 ML/MIN (>=60); GFR NON AFRICAN AMERICAN 93 ML/MIN (>=60); GLOBULIN 3.9 G/DL (2.5-4.1); GLUCOSE, SERUM 112 MG/DL (60-99); IRON BINDING CAPACITY 321 MCG/DL (250-450); IRON, SERUM 79 MCG/DL (35-150); POTASSIUM, SERUM 3.8 MMOL/L (3.5-5.3); SGOT(AST) 26 U/L (5-40); SGPT(ALT) 36 U/L (5-65); SODIUM, SERUM 139 MMOL/L (135-148); TOTAL BILIRUBIN 0.4 MG/DL (0-1.2); TOTAL PROTEIN 7.4 G/DL (6.0-8.5)
[2016-11-06 17:52] LABS: CARBOXYHEMOGLOBIN 0.2 % (0-3); HCO3 (ACTUAL BICARBONATE) 23.3 MEQ/L (23-27); HEMOBLOGIN CONTENT 14.6 G/DL (14-18); INSTRUMENT SERIAL # 11843; METHEMOGLOBIN 0.5 % (0-3); MODE SIMV; PCO2 (CO2 TENSION) 46 MMHG (35-45); PO2 (O2 TENSION) 329 MMHG (79-93); SAMPLE Arterial; TIDAL VOLUME 800 ML; pH 7.32 (7.37-7.43)
[2016-11-06 18:46] LABS: BASOPHILS 0.1 %; BASOPHILS ABSOLUTE 0.03 10/3/uL (0.0-0.16); EOSINOPHILS 0.1 %; EOSINOPHILS ABSOLUTE 0.03 10/3/uL (0.0-0.53); HEMATOCRIT 39.6 % (40.0-51.0); IMMATURE GRANULOCYTES 0.5 %; LYMPHOCYTES 5.2 %; LYMPHOCYTES ABSOLUTE 1.14 10/3/uL (0.67-4.30); MEAN CORPUS HGB CONC 35.4 g/dL (32.0-36.0); MEAN CORPUSCULAR HEMOGLOB 31.2 pg (26.0-34.0); MEAN CORPUSCULAR VOLUME 88.2 fL (80-100); MEAN PLATELET VOLUME 9.7 fL (9.2-13.0); MONOCYTES ABSOLUTE 0.66 10/3/uL (0.21-1.20); NEUTROPHILS 91.1 %; NEUTROPHILS ABSOLUTE 19.89 10/3/uL (2.02-8.40); RBC DISTRIBUTION WIDTH 12.4 % (12.0-16.0); RED CELL COUNT 4.49 10/6/uL (4.7-6.1)
[2016-11-06 18:47] LABS: MANUAL DIFF NO %; PLATELET COUNT 126 10/3/uL (150-400); WHITE BLOOD CELLS 21.9 10/3/uL (4.5-10.5)
[2016-11-06 18:50] LABS: INTERNATIONAL NORMAL RATI 1.4 UNITS (-)
[2016-11-06 18:55] LABS: BUN (BLOOD UREA NITROGEN) 12 MG/DL (6-23); CALCIUM, SERUM 9.4 MG/DL (8.5-10.4); CHLORIDE, SERUM 108 MMOL/L (96-112); CO2 (CARBON DIOXIDE) 25 MMOL/L (24-34); CREATININE 1.03 MG/DL (0.70-1.30); GFR AFRICAN AMERICAN 88 ML/MIN (>=60); GFR NON AFRICAN AMERICAN 76 ML/MIN (>=60); POTASSIUM, SERUM 3.7 MMOL/L (3.5-5.3); SODIUM, SERUM 142 MMOL/L (135-148)
[2016-11-06 18:56] LABS: GLUCOSE, SERUM 89 MG/DL (60-99)
[2016-11-06 18:58] LABS: PROTIME (NOT ORD) 17.4 SEC (12.0-14.5)
[2016-11-06 19:52] LABS: FIBRINOGEN 319 MG/DL (230-462)
[2016-11-06 22:53] LABS: BE (BASE EXCESS) -5.2 MEQ/L (0 +/- 2.5); CARBOXYHEMOGLOBIN 0.2 % (0-3); DEVICE NC; HCO3 (ACTUAL BICARBONATE) 20.6 MEQ/L (23-27); HEMOBLOGIN CONTENT 14.3 G/DL (14-18); INSTRUMENT SERIAL # 11843; METHEMOGLOBIN 0.4 % (0-3); O2 CONTENT 18.3 VOL% (18-24); OPERATOR ID 13744; PCO2 (CO2 TENSION) 41 MMHG (35-45); PO2 (O2 TENSION) 67 MMHG (79-93); SAMPLE Arterial; pH 7.32 (7.37-7.43)
[2016-11-07 00:29] LABS: HEMATOCRIT 40.1 % (40.0-51.0); HEMOGLOBIN 13.9 g/dL (13.6-17.8)
[2016-11-07 00:43] LABS: POTASSIUM, SERUM 4.9 MMOL/L (3.5-5.3)
[2016-11-07 04:23] LABS: BASOPHILS 0 %; EOSINOPHILS 0 %; HEMOGLOBIN 13.7 g/dL (13.6-17.8); IMMATURE GRANULOCYTES 0.5 %; IMMATURE GRANULOCYTES ABSOLUTE 0.08 10/3/uL (0.0-0.11); LYMPHOCYTES 4.6 %; LYMPHOCYTES ABSOLUTE 0.79 10/3/uL (0.67-4.30); MEAN CORPUS HGB CONC 34.3 g/dL (32.0-36.0); MEAN CORPUSCULAR HEMOGLOB 30.4 pg (26.0-34.0); MEAN CORPUSCULAR VOLUME 88.9 fL (80-100); MEAN PLATELET VOLUME 9.8 fL (9.2-13.0); MONOCYTES 4.3 %; MONOCYTES ABSOLUTE 0.73 10/3/uL (0.21-1.20); NEUTROPHILS 90.6 %; NEUTROPHILS ABSOLUTE 15.46 10/3/uL (2.02-8.40); PLATELET COUNT 119 10/3/uL (150-400); RBC DISTRIBUTION WIDTH 12.7 % (12.0-16.0); WHITE BLOOD CELLS 17.1 10/3/uL (4.5-10.5)
[2016-11-07 04:24] LABS: MANUAL DIFF NO %
[2016-11-07 04:29] LABS: INTERNATIONAL NORMAL RATI 1.3 UNITS (-); PROTIME (NOT ORD) 15.8 SEC (12.0-14.5)
[2016-11-07 06:13] LABS: CALCIUM, SERUM 8.9 MG/DL (8.5-10.4); CHLORIDE, SERUM 109 MMOL/L (96-112); CO2 (CARBON DIOXIDE) 21 MMOL/L (24-34); GFR AFRICAN AMERICAN 104 ML/MIN (>=60); GFR NON AFRICAN AMERICAN 89 ML/MIN (>=60); GLUCOSE, SERUM 143 MG/DL (60-99); POTASSIUM, SERUM 4.3 MMOL/L (3.5-5.3); SODIUM, SERUM 142 MMOL/L (135-148)
[2016-11-07 06:14] LABS: BUN (BLOOD UREA NITROGEN) 19 MG/DL (6-23)
[2016-11-07 12:05] LABS: POTASSIUM, SERUM 3.8 MMOL/L (3.5-5.3)
[2016-11-07 16:29] LABS: HEMOGLOBIN 13.1 g/dL (13.6-17.8)
[2016-11-08 04:19] LABS: BASOPHILS 0 %; BASOPHILS ABSOLUTE 0.01 10/3/uL (0.0-0.16); EOSINOPHILS 0 %; HEMATOCRIT 39.6 % (40.0-51.0); HEMOGLOBIN 13.5 g/dL (13.6-17.8); IMMATURE GRANULOCYTES 0.3 %; IMMATURE GRANULOCYTES ABSOLUTE 0.08 10/3/uL (0.0-0.11); LYMPHOCYTES 9.5 %; LYMPHOCYTES ABSOLUTE 2.25 10/3/uL (0.67-4.30); MEAN CORPUS HGB CONC 34.1 g/dL (32.0-36.0); MEAN CORPUSCULAR HEMOGLOB 30.7 pg (26.0-34.0); MEAN PLATELET VOLUME 10.3 fL (9.2-13.0); MONOCYTES 11.1 %; MONOCYTES ABSOLUTE 2.62 10/3/uL (0.21-1.20); NEUTROPHILS 79.1 %; NEUTROPHILS ABSOLUTE 18.65 10/3/uL (2.02-8.40); WHITE BLOOD CELLS 23.6 10/3/uL (4.5-10.5)
[2016-11-08 04:24] LABS: MANUAL DIFF NO %; PLATELET COUNT 161 10/3/uL (150-400)
[2016-11-08 04:35] LABS: CALCIUM, SERUM 9.1 MG/DL (8.5-10.4); CHLORIDE, SERUM 102 MMOL/L (96-112); CREATININE 0.97 MG/DL (0.70-1.30); GFR AFRICAN AMERICAN 95 ML/MIN (>=60); GFR NON AFRICAN AMERICAN 82 ML/MIN (>=60); POTASSIUM, SERUM 4.3 MMOL/L (3.5-5.3); SODIUM, SERUM 139 MMOL/L (135-148)
[2016-11-08 04:38] LABS: BUN (BLOOD UREA NITROGEN) 27 MG/DL (6-23); CO2 (CARBON DIOXIDE) 27 MMOL/L (24-34); GLUCOSE, SERUM 99 MG/DL (60-99)
[2016-11-09 05:53] LABS: BASOPHILS 0.1 %; BASOPHILS ABSOLUTE 0.02 10/3/uL (0.0-0.16); EOSINOPHILS 0 %; HEMATOCRIT 38.2 % (40.0-51.0); IMMATURE GRANULOCYTES 0.4 %; IMMATURE GRANULOCYTES ABSOLUTE 0.08 10/3/uL (0.0-0.11); LYMPHOCYTES 11.3 %; LYMPHOCYTES ABSOLUTE 2.12 10/3/uL (0.67-4.30); MEAN CORPUSCULAR HEMOGLOB 30.2 pg (26.0-34.0); MEAN CORPUSCULAR VOLUME 88.8 fL (80-100); MEAN PLATELET VOLUME 10.2 fL (9.2-13.0); MONOCYTES 11.2 %; NEUTROPHILS ABSOLUTE 14.47 10/3/uL (2.02-8.40); PLATELET COUNT 128 10/3/uL (150-400); RBC DISTRIBUTION WIDTH 13.1 % (12.0-16.0); WHITE BLOOD CELLS 18.8 10/3/uL (4.5-10.5)
[2016-11-09 06:03] LABS: MANUAL DIFF NO %
[2016-11-09 06:11] LABS: CALCIUM, SERUM 9.1 MG/DL (8.5-10.4); CHLORIDE, SERUM 100 MMOL/L (96-112); CO2 (CARBON DIOXIDE) 25 MMOL/L (24-34); CREATININE 0.86 MG/DL (0.70-1.30); GFR AFRICAN AMERICAN 105 ML/MIN (>=60); GFR NON AFRICAN AMERICAN 91 ML/MIN (>=60); POTASSIUM, SERUM 4.1 MMOL/L (3.5-5.3); SODIUM, SERUM 134 MMOL/L (135-148)
[2016-11-09 06:13] LABS: BUN (BLOOD UREA NITROGEN) 31 MG/DL (6-23); GLUCOSE, SERUM 130 MG/DL (60-99)
[2016-11-10 06:53] LABS: BASOPHILS 0.2 %; BASOPHILS ABSOLUTE 0.03 10/3/uL (0.0-0.16); EOSINOPHILS 0.1 %; EOSINOPHILS ABSOLUTE 0.02 10/3/uL (0.0-0.53); HEMATOCRIT 38.6 % (40.0-51.0); HEMOGLOBIN 13.6 g/dL (13.6-17.8); IMMATURE GRANULOCYTES 0.5 %; IMMATURE GRANULOCYTES ABSOLUTE 0.07 10/3/uL (0.0-0.11); LYMPHOCYTES 14.1 %; MEAN CORPUS HGB CONC 35.2 g/dL (32.0-36.0); MEAN CORPUSCULAR HEMOGLOB 31.3 pg (26.0-34.0); MEAN CORPUSCULAR VOLUME 88.7 fL (80-100); MEAN PLATELET VOLUME 9.7 fL (9.2-13.0); MONOCYTES 14.2 %; MONOCYTES ABSOLUTE 2.11 10/3/uL (0.21-1.20); NEUTROPHILS 70.9 %; NEUTROPHILS ABSOLUTE 10.56 10/3/uL (2.02-8.40); PLATELET COUNT 158 10/3/uL (150-400); RBC DISTRIBUTION WIDTH 12.6 % (12.0-16.0); RED CELL COUNT 4.35 10/6/uL (4.7-6.1); WHITE BLOOD CELLS 14.9 10/3/uL (4.5-10.5)
[2016-11-10 06:59] LABS: CALCIUM, SERUM 8.9 MG/DL (8.5-10.4); CHLORIDE, SERUM 97 MMOL/L (96-112); CO2 (CARBON DIOXIDE) 27 MMOL/L (24-34); GFR AFRICAN AMERICAN 91 ML/MIN (>=60); GFR NON AFRICAN AMERICAN 79 ML/MIN (>=60); GLUCOSE, SERUM 131 MG/DL (60-99); POTASSIUM, SERUM 3.9 MMOL/L (3.5-5.3); SODIUM, SERUM 134 MMOL/L (135-148)
[2016-11-10 07:00] LABS: MANUAL DIFF NO %
[2016-11-10 07:02] LABS: BUN (BLOOD UREA NITROGEN) 38 MG/DL (6-23)
[2016-11-11] MEDS ORDERED: NORV5 PO (12:54)
[2016-11-11] MEDS ORDERED: IMDUR60 PO (12:54)
[2016-11-11] MEDS ORDERED: CORDARONE PO (12:55)
[2016-11-11] MEDS ORDERED: LOP25 PO (12:55)
[2016-11-11] MEDS ORDERED: JANTOVEN5 MG PO (12:56)
[2016-11-11] MEDS ORDERED: NORCO1 TA1 PO (12:56)
== END 2016-11-11 15:00 | disposition home or self-care (01) | DRG 234 ==
LOC: CORLMH 08:01 → SSU1 08:08 → 5NO 11-04 12:02 → SDC/OF 11-06 09:33 → CVICU 11-06 16:53 → 5NO 11-08 16:26
PROVIDERS: Internal Medicine Cardiovascular Disease; Nurse Practitioner Family; Thoracic Surgery (Cardiothoracic Vascular Surgery)
PROC: 4A023N7 Measurement of Cardiac Sampling and Pressure, Left Heart, Percutaneous Approach (ICD-10-PCS; 2016-11-03)
PROC: B2111ZZ Fluoroscopy of Multiple Coronary Arteries using Low Osmolar Contrast (ICD-10-PCS; 2016-11-03)
PROC: B2151ZZ Fluoroscopy of Left Heart using Low Osmolar Contrast (ICD-10-PCS; 2016-11-03)
PROC: 0PH000Z Insertion of Rigid Plate Internal Fixation Device into Sternum, Open Approach (ICD-10-PCS; 2016-11-06)
PROC: 5A1221Z Performance of Cardiac Output, Continuous (ICD-10-PCS; 2016-11-06)
PROC: B246ZZ4 Ultrasonography of Right and Left Heart, Transesophageal (ICD-10-PCS; 2016-11-06)
PROC: 021209W Bypass Coronary Artery, Three Arteries from Aorta with Autologous Venous Tissue, Open Approach (ICD-10-PCS; principal; 2016-11-06 12:00)
PROC: 0210099 Bypass Coronary Artery, One Artery from Left Internal Mammary with Autologous Venous Tissue, Open Approach (ICD-10-PCS; 2016-11-06 12:00)
PROC: 06BP4ZZ Excision of Right Saphenous Vein, Percutaneous Endoscopic Approach (ICD-10-PCS; 2016-11-06 12:00)
DX: I25.110 Atherosclerotic heart disease of native coronary artery with unstable angina pectoris (principal); I25.82 Chronic total occlusion of coronary artery; J44.9 Chronic obstructive pulmonary disease, unspecified; I10 Essential (primary) hypertension; E78.00 Pure hypercholesterolemia, unspecified; E78.5 Hyperlipidemia, unspecified; F32.9 Major depressive disorder, single episode, unspecified; E66.9 Obesity, unspecified; R73.9 Hyperglycemia, unspecified; Z68.30 Body mass index [BMI] 30.0-30.9, adult; F17.210 Nicotine dependence, cigarettes, uncomplicated; Z79.82 Long term (current) use of aspirin; Z95.828 Presence of other vascular implants and grafts
CPT/HCPCS: 36415; 71010; 71020; 80048; 80053; 80061; 81001; 82330; 82803; 82805; 82947; 82962; 83036; 83540; 83550; 83735; 84132; 84295; 85014; 85018; 85025; 85347; 85384; 85610; 85730; 86850; 86900; 86901; 86920; 87641; 93005; 93312; 93320; 93325; 93458; 94002; 94010; 94640; 94660; 94762; 94770; 99152; A9270-GY; C1713; C1769; C1887; C1894; G0365; J0282; J0360; J0690; J1644; J1940; J2150; J2250; J2370; J2440; J2720; J2930; J3010; J3370; J3475; J3480; P9045; P9047; Q9967